=== PATIENT | female | born 1995 ===

== ENCOUNTER 2016-05-17 09:40 | Day surgery (SDC) | payer BC ==
[2016-05-17] MEDS ORDERED: Propofol 10 mg/ml Inj (20 ML) ONE (09:59)
[2016-05-17] MEDS ORDERED: Lactated Ringer's 500 ML IV ONE (10:01)
[2016-05-17 10:51] VITALS: RESP 14; TEMP 98
[2016-05-17 10:52] VITALS: BP 125/78; PULSE 79; O2SAT 100
== END 2016-05-17 12:24 | disposition home or self-care (01) ==
LOC: H.ENDO 09:40
PROVIDERS: ATTEND Internal Medicine Gastroenterology
DX: B37.81 Candidal esophagitis (principal); K44.9 Diaphragmatic hernia without obstruction or gangrene; K26.9 Duodenal ulcer, unspecified as acute or chronic, without hemorrhage or perforation; K90.0 Celiac disease
CPT/HCPCS: 43239; 88104; 88305; 88313; J2704; J3010; J7120